=== PATIENT | female | born 2005 | race Two or more races ===

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

== ENCOUNTER 2024-03-09 14:34 | Inpatient (IN) | payer OTHER ==
[~2024-03-09] VITALS: Ht 162.6 cm; Wt 67.1 kg
[2024-03-09] MEDS ORDERED: FOLIC ACID0.8 M1 PO (14:45)
[2024-03-09] MEDS ORDERED: PRENATABS RX T1 EACH PO (14:45)
[2024-03-09] MEDS ORDERED: PEPCID AC20 MG PO (14:46)
[2024-03-09] MEDS ORDERED: AMPICILLIN SODIUM 2,000 MG VIAL IV NR (15:00)
[2024-03-09] MEDS ORDERED: RINGERS SOLUTION,LACTATED 1,000 ML IV SCH (15:00)
[2024-03-09 15:51] LABS: PH,URINE 7.5 (5.0-8.0); URINE APPEARANCE Clear; URINE BILIRRUBIN Negative (NEGATIVE); URINE BLOOD Negative; URINE COLOR Yellow; URINE GLUCOSE Negative (NEGATIVE); URINE KETONE Negative (NEGATIVE); URINE LEUKOCYTE Moderate; URINE NITRATE Negative; URINE PROTEIN Negative (NEGATIVE); URINE UROBILINOGEN 0.2 E.U./dl
[2024-03-09 15:55] LABS: URINE BACTERIA 1634.1 uL (0.0-1933); URINE EPITHELIAL CELLS 52.1 uL (0.0-38.8); URINE WBC 48.6 uL (0.0-23.2)
[2024-03-09 16:03] LABS: URINE CAST 0.15 uL (0.0-1.40); URINE RBC 1.3 uL (0.0-20.8)
[2024-03-09 16:32] LABS: HEMOGLOBIN 14.6 g/dL (12.0-15.00); INR < 0.93; MEAN CELL VOLUME 92.4 fL (80.00-100.00); MEAN CORPUSCULAR HEMOGLOBIN 31.4 pg (27.00-32.0); PARTIAL THROMBOPLASTIN TIME 27.2 SECONDS (22.0-34.0); PLATELET COUNT 246 K/uL (150-450); PROTHROMBIN TIME 9.6 SECONDS (9.0-11.5); RED BLOOD COUNT 4.65 M/uL (4.00-6.00); RED CELL DISTRIBUTION WIDTH 13.6 % (11.5-14.5)
[2024-03-09 16:41] LABS: ALBUMIN 3.8 gm/dL (3.4-5.0); BILIRUBIN TOTAL 0.37 mg/dL (0.3-1.2); CALCIUM 9.7 mg/dL (8.5-10.1); CREATININE SERUM 0.58 mg/dL (0.55-1.02); GFR 133.92; GLOBULINA 4.8 G/DL (2.4-3.5); POTASSIUM 4.35 mEq/L (3.5-5.1); TOTAL PROTEIN 8.6 gm/dL (6.4-8.2)
[2024-03-09] MEDS ORDERED: MISOPROSTOL 25 MCG/4 ML GEL.W.APPL ONE (17:06)
[2024-03-09] MEDS ORDERED: MISOPROSTOL 25 MCG/4 ML GEL.W.APPL VAG STA (17:09)
[2024-03-09] MEDS ORDERED: AMPICILLIN SODIUM 1,000 MG VIAL IV SCH (20:00)
[2024-03-09] MEDS ORDERED: MORPHINE SULFATE 4 MG/ML CARTRIDGE IV ONE (20:30)
[2024-03-09] MEDS ORDERED: ERYTHROMYCIN BASE 1 GM TUBE OP ONE (21:43)
[2024-03-09] MEDS ORDERED: OXYTOCIN 20 UNITS/1000ML RL PIGGYBAG IV ONE (21:44)
[2024-03-09] MEDS ORDERED: LIDOCAINE HCL 1% 10ML VIAL ONE (21:44)
[2024-03-09] MEDS ORDERED: CHLORHEXIDINE GLUCONATE 120 ML BOTTLE TOP ONE (21:44)
[2024-03-09] MEDS ORDERED: OXYTOCIN 10 UNITS/ML VIAL ONE (22:59)
[2024-03-09] MEDS ORDERED: OXYTOCIN 20 UNITS/500ML RL PIGGYBAG IV ONE (23:02)
[2024-03-09] MEDS ORDERED: MORPHINE SULFATE 4 MG/ML VIAL IV STA (23:03)
[2024-03-09] MEDS ORDERED: OXYTOCIN 500 ML IV SCH (23:15)
[2024-03-10] MEDS ORDERED: IBUprofen 400 MG TABLET PO PRN (01:15)
[2024-03-10] MEDS ORDERED: ERYTHROMYCIN BASE 1 GM TUBE OP SCH (02:00)
[2024-03-10] MEDS ORDERED: OXYTOCIN 10 UNITS/ML VIAL IM STA (02:00)
[2024-03-10] MEDS ORDERED: CHLORHEXIDINE GLUCONATE 120 ML BOTTLE TP SCH (02:00)
[2024-03-10] MEDS ORDERED: OXYTOCIN 1,000 ML IV SCH (02:00)
[2024-03-10] MEDS ORDERED: LIDOCAINE HCL 1% 20ML VIAL IJ ONE (02:30)
[2024-03-10] MEDS ORDERED: OXYTOCIN 500 ML IV ONE (02:30)
[2024-03-10 04:47] LABS: o2 21 %
[2024-03-10 08:08] LABS: HEMATOCRIT 39.1 % (36.0-45.00); HEMOGLOBIN 13.5 g/dL (12.0-15.00); MEAN CELL VOLUME 91.5 fL (80.00-100.00); MEAN CORPUSCULAR HEMOGLOBIN 31.5 pg (27.00-32.0); MEAN CORPUSCULAR HGB CONC 34.5 g/dl (32.0-36.0); PLATELET COUNT 287 K/uL (150-450); RED BLOOD COUNT 4.27 M/uL (4.00-6.00); RED CELL DISTRIBUTION WIDTH 13.5 % (11.5-14.5)
== END 2024-03-12 12:35 | disposition home or self-care (01) | DRG 807 ==
LOC: OB/GYN 14:34 → LDR 14:34 → OB/GYN 03-10 02:35
PROVIDERS: Obstetrics & Gynecology; ADMIT Obstetrics & Gynecology; ATTEND Obstetrics & Gynecology
PROC: 3E0P7VZ Introduction of Hormone into Female Reproductive, Via Natural or Artificial Opening (ICD-10-PCS; 2024-03-09)
PROC: 4A1HXCZ Monitoring of Products of Conception, Cardiac Rate, External Approach (ICD-10-PCS; 2024-03-09)
PROC: 10E0XZZ Delivery of Products of Conception, External Approach (ICD-10-PCS; principal; 2024-03-10)
PROC: 0HQ9XZZ Repair Perineum Skin, External Approach (ICD-10-PCS; 2024-03-10)
PROC: 3E033VJ Introduction of Other Hormone into Peripheral Vein, Percutaneous Approach (ICD-10-PCS; 2024-03-10)
DX: O70.0 First degree perineal laceration during delivery (principal); O42.02 Full-term premature rupture of membranes, onset of labor within 24 hours of rupture; Z37.0 Single live birth; Z3A.38 38 weeks gestation of pregnancy; Z20.822 Contact with and (suspected) exposure to COVID-19

== ENCOUNTER 2025-02-25 10:33 | Outpatient (CLI) | payer OTHER ==
[~2025-02-25 10:33] MED LIST: FOLIC ACID0.8 M1 PO; PEPCID AC20 MG PO; PRENATABS RX T1 EACH PO
== END 2025-02-25 10:34 | disposition home or self-care (01) ==
LOC: PRENATAL 10:33
PROVIDERS: ATTEND Obstetrics & Gynecology
DX: O36.80X0 Pregnancy with inconclusive fetal viability, not applicable or unspecified (principal); Z36.82 Encounter for antenatal screening for nuchal translucency; Z3A.13 13 weeks gestation of pregnancy

== ENCOUNTER 2025-04-11 11:37 | Outpatient (CLI) | payer OTHER | END 2025-04-11 11:38 | disposition home or self-care (01) | LOC: PRENATAL 11:37 | PROVIDERS: ATTEND Obstetrics & Gynecology Maternal & Fetal Medicine | DX: O44.00 Complete placenta previa NOS or without hemorrhage, unspecified trimester (principal); O43.90 Unspecified placental disorder, unspecified trimester; Z3A.20 20 weeks gestation of pregnancy ==

== ENCOUNTER → 2025-07-23 07:50 | Outpatient (CLI) | payer OTHER | END | disposition home or self-care (01) | LOC: PRENATAL 07:50 | PROVIDERS: ATTEND Obstetrics & Gynecology Maternal & Fetal Medicine | DX: O26.843 Uterine size-date discrepancy, third trimester (principal); O36.8130 Decreased fetal movements, third trimester, not applicable or unspecified; O43.93 Unspecified placental disorder, third trimester; Z3A.34 34 weeks gestation of pregnancy ==